=== PATIENT | female | born 1960 | race Caucasian/White ===

== ENCOUNTER → 2017-04-30 | Outpatient (CLI) | payer OTHER | END | disposition home or self-care (01) | LOC: MAMMO 01:13 | DX: Z12.31 Encounter for screening mammogram for malignant neoplasm of breast (principal) ==

== ENCOUNTER → 2018-09-07 | Outpatient (CLI) | payer OTHER | END | disposition home or self-care (01) | LOC: RAD 10:37 | DX: R05 Cough (principal); I10 Essential (primary) hypertension ==